=== PATIENT | male | born 1990 | race Caucasian/White ===

== ENCOUNTER 2016-08-28 21:39 | Emergency (ER) | payer BC, OTHER ==
[2016-08-28 21:56] VITALS: BP 131/81
--- NOTE | 2016-08-28 22:48 | EDM.PDOC ---
ED HPI EYE COMPLAINT - General Chief Complaint: Eye Problems Stated Complaint: Red eye Time Seen by Provider: 08/28/16 22:00 Source: Reports: Patient, RN notes reviewed History Limitations: Reports: No limitations - History of Present Illness INITIAL COMMENTS - FREE TEXT/NARRATIVE: 26 year old male presents to the ED with right eye discomfort, redness, and drainage. The symptoms started today after he was working outside. He works in the [employer] and said he was around flying particles while at work today. He does not recall getting any particles in his eye. His eye is sensitive to light and is watering excessively. He took his contacts out and said he had no problems removing them. His left eye is normal. He does report cold symptoms for the past couple days. - Related Data Allergies/ADRs: Allergies No Known Allergies Allergy (Verified 08/28/16 21:48) Home Meds: Ambulatory Orders Medication Instructions Recorded Confirmed . [No Known Home Meds] 08/28/16 08/28/16 Past Medical History - Past Health History Medical/Surgical History: Denies Medical/Surgical History Social & Family History - Tobacco Use Smoking Status *Q: Never Smoker Second Hand Smoke Exposure: No ED ROS GENERAL - Review of Systems Review Of Systems: See Below Constitutional: Reports: no symptoms. Denies: fever, chills HEENT: Reports: Eye discharge, Eye pain, Rhinitis Respiratory: Reports: No Symptoms. Denies: Cough Cardiovascular: Reports: No symptoms. Denies: Chest pain ED EXAM GENERAL W FULL EYE - Physical Exam Exam: See Below Exam Limited By: No limitations General Appearance: alert, WD/WN, no apparent distress Eye Exam: right eye: conjunctival injection, corneal abrasion, left eye: normal inspection, bilateral eye: EOMI, PERRL Visual acuity (R) 20/: 25 Visual acuity (L) 20/: 25 With Correction: Yes Eyelids: bilateral: normal appearance Conjunctiva & Sclera: bilateral: normal appearance Cornea Exam: right: corneal abrasion (examined with flurox and black light. no obvious corneal abrasion. However, patient clinically appears to have a cornea abrasion), other (inverted eye lid, no foreign bodies appreciated. ), left: normal appearance Extraocular Movements: bilateral: intact Head: atraumatic, normocephalic Course - Vital Signs Last Recorded V/S: Last Vital Signs Temp 98.4 F 08/28/16 21:48 Pulse 78 08/28/16 21:48 Resp 16 08/28/16 21:48 BP 131/81 08/28/16 21:48 Pulse Ox 99 08/28/16 21:48 - Re-Assessments/Exams Free Text/Narrative Re-Assessment/Exam: Proparacain was utilized for topical anesthetic. Patient had immediately symptom relief. No obvious corneal abrasion, however clinically the patient has corneal abrasion. No foreign material found. Gentamycin drops sent to [facility]. Patient educated on corneal abrasion care. Instructed to return to ED if not improved in 24 hours, sooner if worse. Departure - Departure Time of Disposition: 22:47 Disposition: Home, Self-Care 01 Condition: good Clinical Impression: Corneal abrasion Qualifiers: Encounter type: initial encounter Laterality: right Qualified Code(s): S05.01XA - Injury of conjunctiva and corneal abrasion without foreign body, right eye, initial encounter Instructions: Corneal Abrasion, [id number] Referrals: PCP,None [Primary Care Provider] - Forms: ED Department Discharge, Return to Work/School Form Additional Instructions: Gentamycin 1 drop to both eyes twice a day for 5 days Return to ER if symptoms worsen or have not improved in 24 hours Tylenol or Ibuprofen as needed for pain
== END 2016-08-28 22:52 | disposition home or self-care (01) ==
LOC: JD.ED 21:39
DX: S05.01XA Injury of conjunctiva and corneal abrasion without foreign body, right eye, initial encounter (principal); X58.XXXA Exposure to other specified factors, initial encounter; Y92.65 Oil rig as the place of occurrence of the external cause; Y99.0 Civilian activity done for income or pay
CPT/HCPCS: 99283